=== PATIENT | female | born 1995 | race Caucasian/White ===

== ENCOUNTER 2018-08-25 16:59 | Emergency (ER) | payer BC ==
--- OUTSIDE RECORDS SUMMARY | 2018-08-25 17:08 | XMS REPORT | Continuity of Care Document ---
:1995 External Reference #:[id number] Author Name Khloe Barton Care Team Providers Name Role Phone Addi Sanford MD Primary Care Physician Unavailable Payers Type Date Identification Numbers Payment Provider Subscriber Policy Number: [id number] [employer] Gladys Deal PayID: [id number] [address] [address] [place] [address] Policy Number: [id number] Cont: [facility] Corin Blevins PayID: [id number] [place] [address] Advance Directives Description No Information Available Problems Date Description Provider Status Onset: 03/26/2012 Refractory epilepsy John Vicente M.D. 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 hours as needed for pain Tramadol HCL Active Tablets 50mg 20tabs 1 by M54.14 Addi 018 mouth [place], every 6 M.D. hours as needed pain Keppra Active Tablets 500mg 225tab 1 by Dayday Kirkland s mouth in Carolyn, in the MD morning 1 and a half in at night Ortho Active Tablets 0.18/0.215 28tabs 1 po qd John Tri-Cyclen 012 /0.25 mg-3 Clarisa Vicente Diazepam Active Tablets 2mg as needed Unknown 000 Celexa Active Tablets 20mg 1 by Unknown 000 mouth every day Celexa 0 Active Tablets 10mg 1 by Unknown 000 mouth every day Neurontin Active Capsules 300mg 1 tid Unknown 000 Phentermine Active Capsules 30mg 1 tab Unknown HCL 000 daily Fluoxetine HCL Active Capsules 10mg Juvenal, 000 MD Addi Hydrocodone/Ac Hx Tablets 5-325mg 50tabs 1-2 po John etaminophen 012 - qid prn Danielzijoe, M.DCristino [address] Hx Tablets DR 500mg 60tabs po bid 844.9 John 012 - with food Jules, M.DCristino 014 Albuterol HFA Hx 90mcg prn Unknown 000 - 018 Hydroxyzine Hx Tablets 50mg take 1 Unknown HCL 000 - tab every 6 hours 018 as needed Potassium Hx Tablets 99mg 1 by Unknown 000 - mouth twice 018 0 Hx Tablets 1 by Unknown 000 - mouth every day 017 Iron Hx Tablets 325(65Fe) 1 by Unknown 000 - mg mouth every day 018 Immunizations Description No Information Available Vital Signs Date Vital Result Comment 08/25/2018 3:06pm Height 63 inches 5'3" Weight 224.00 lb BP Systolic Sitting 180 mmHg BP Diastolic Sitting 100 mmHg Pain Level 10 BMI (Body Mass Index) 39.7 kg/m2 08/18/2018 8:59am Height 63 inches 5'3" Weight 224.00 lb BP Systolic Sitting 128 mmHg BP Diastolic Sitting 90 mmHg Pain Level 7 BMI (Body Mass Index) 39.7 kg/m2 07/29/2018 10:59am Height 63 inches 5'3" Weight 224.12 lb Heart Rate 82 /min BP Systolic Sitting 122 mmHg BP Diastolic Sitting 82 mmHg BMI (Body Mass Index) 39.7 kg/m2 04/28/2018 1:49pm Height 63 inches 5'3" Weight 228.00 lb Heart Rate 76 /min BP Systolic Sitting 110 mmHg BP Diastolic Sitting 72 mmHg BMI (Body Mass Index) 40.4 kg/m2 12/19/2016 1:44pm Height 63 inches 5'3" Weight 256.00 lb Heart Rate 80 /min BP Systolic Sitting 130 mmHg BP Diastolic Sitting 88 mmHg BMI (Body Mass Index) 45.3 kg/m2 12/21/2015 1:36pm Height 63 inches 5'3" Weight 290.00 lb Heart Rate 68 /min BP Systolic Sitting 118 mmHg BP Diastolic Sitting 80 mmHg Respiratory Rate 14 /min BMI (Body Mass Index) 51.4 kg/m2 09/15/2014 10:44am Height 63 inches 5'3" Weight 298.00 lb Heart Rate 80 /min BP Systolic Sitting 128 mmHg BP Diastolic Sitting 68 mmHg Respiratory Rate 16 /min BMI (Body Mass Index) 52.8 kg/m2 01/07/2014 11:08am Height 63 inches 5'3" Weight 280.00 lb Heart Rate 76 /min BP Systolic 108 mmHg BP Diastolic 76 mmHg Respiratory Rate 16 /min Body Temperature 98.2 F BMI (Body Mass Index) 49.6 kg/m2 Blood Pressure Percentile 43 % Height Percentile 31 % Weight Percentile >97th 03/26/2012 9:28am Height 62 inches 5'2" Weight 250.00 lb Heart Rate 88 /min BP Systolic 126 mmHg BP Diastolic 72 mmHg Respiratory Rate 20 /min Body Temperature 97.9 F BMI (Body Mass Index) 45.7 kg/m2 Blood Pressure Percentile 93 % Height Percentile 20 % Weight Percentile >97th Results Description No Information Available Procedures Date Code Description Status 12/13/2016 27107 EEG Recording Awake & Drowsy Completed Encounters Type Date Location Provider Dx Diagnosis Office Visit 07/29/2018 [facility] Dayday Loen, G40.309 Gen idiopathic 10:45a epilepsy, not intractable, w/o stat epi M54.14 Radiculopathy, thoracic region Office 04/28/2018 [facility] Dayday G40.309 Gen idiopathic Visit 2:00p Clinic MD Carolyn epilepsy, not intractable, w/o stat epi Office 12/19/2016 [facility] Dayday G40.309 Gen idiopathic Visit 1:45p Clinic MD Carolyn epilepsy, not intractable, w/o stat epi Z79.899 Other snf (current) drug therapy Office Visit 12/21/2015 [place] Dayday Leon, G40.309 Gen idiopathic 1:45p Neurologic epilepsy, not [facility] intractable, w/o stat epi Office Visit 09/15/2014 [place] Dayday Leon, 345.10 Epilepsy 11:00a Neurologic Convulsive W/O [facility] Intractable Office Visit 01/07/2014 Orthopedic Abelardo Mcconnell, 844.9 Sprains & Strains 10:45a [facility]isa K[facility] Leg Un[facility] AT [place] Office Visit 07/02/2012 Orthopedic John Vicente 844.9 Sprains & Strains 8:45a [facility]isa Knee & Leg Un[facility] AT [place] Office Visit 04/09/2012 Orthopedic John Vicente 844.9 Sprains & Strains 10:15a [facility] Clarisa Knee & Leg Unspec AT [place] Office Visit 03/26/2012 Orthopedic John Vicente 844.9 Sprains & Strains 9:00a [facility] Clarisa Knee & Leg Unspec AT [place] Plan of Treatment Future Appointment(s):01/27/2019 10:45 am - Daydya Leon MD at [facility] [place]/25/2018 - CLAIRE Guzman-CM51.34 Other intervertebral disc degeneration, thoracic regionFollow up:with PCP
[2018-08-25] MEDS ORDERED: Ketorolac INJ* 60 MG/2 ML VIAL IM ONE (17:18)
[2018-08-25] MEDS ORDERED: HYDROcodone/ACETAMIN 5-325 MG* 1 TAB PO ONE ×2 (18:20→20:22)
[2018-08-25 18:49] LABS: EGFR Non-African American 109.1 (>60)
[2018-08-25 18:51] LABS: ABS Basophils 0 10^3/ul (0-0.2); ABS Eosinophils 0.2 10^3/ul (0-0.6); ABS Lymphocytes 2.4 10^3/ul (1.0-4.8); ABS Monocytes 0.4 10^3/ul (0-0.8); ABS Nucleated RBC 0 10^3/ul; Eosinophil % 2.6 %; Hematocrit 34 % (35-47); Hemoglobin 10.8 g/dl (12.0-16.0); Lymphocyte % 40.8 %; Mean Corpuscular HGB Conc 32 g/dl (31-36); Mean Corpuscular Hemoglobin 23 pg (27-31); Mean Corpuscular Volume 73 fL (80-97); Mean Platelet Volume 7.1 fL (7.4-10.4); Nucleated Red Blood Cells % 0; Platelet Count 366 10^3/ul (150-450); Red Blood Count 4.65 10^6/ul (4.00-5.40); Red Cell Distribution Width 17 % (10.5-15)
[2018-08-25 19:31] LABS: Urine Appearance Cloudy; Urine Blood Negative (Negative); Urine Color Yellow; Urine Ketones Negative (Negative); Urine Protein Negative (Negative); Urine Red Blood Cell Absent (Absent); Urine Specific Gravity 1.014 (1.010-1.030); Urine Urobilinogen Positive (Negative); Urine White Blood Cell 2+(11-20/hpf) (Absent)
--- NOTE | 2018-08-25 20:17 | ED ---
Back Pain - HPI Summary HPI Summary: Patient complains of chronic back pain 6 months. Patient has been evaluated by neurosurgery with negative MRI of T-spine and L-spine June. Seen here for same 08/22. Seen by neurology today and told to come to the ED for continuing pain. Patient states pain occasionally involves bilateral ribs and shortness of breath. Patient currently taking OCPs. Patient denies fever, cough, sore throat, CP, SOB, N/V/V abdominal pain, change in urine, change in BM , change in ambulation. Pain worse after continued walking. Patient states she is being followed by acupuncture, chiropractic and physical therapy for same. States no treatment or medication has provided relief from pain. History of herniated disc. History of gastric bypass. Denies history of blood clots, history of cancer, , recent surgery or trauma. - History of Current Complaint Chief Complaint: EDBackInjuryPain Stated Complaint: BACK PAIN Time Seen by Provider: 08/25/18 17:10 Hx Obtained From: Patient Onset/Duration: Gradual Onset Onset/Duration: Started Weeks Ago Timing: Constant Severity Initially: Severe Severity Currently: Severe Pain Intensity: 8 Pain Scale Used: 0-10 Numeric Character: Sharp, Aching, Throbbing Aggravating Symptom(s): Movement, Walking Alleviating Symptom(s): Rest Associated Signs And Symptoms: Positive: Negative - Allergies/Home Medications Allergies/Adverse Reactions: Allergies Allergy/AdvReac Type Severity Reaction Status Date / Time No Known Allergies Allergy Verified 08/22/18 16:08 PMH/Surg Hx/FS Hx/Imm Hx Endocrine/Hematology History: Denies: Hx Diabetes Cardiovascular History: Denies: Hx Hypertension History: Denies: Hx Renal Disease - Surgical History Surgery Procedure, Year, and Place: Gastric Bypass. February 2018 Infectious Disease History: No Infectious Disease History: Denies: Traveled Outside the [place] in Last 30 Days - Family History Known Family History: Positive: Non-Contributory - Social History Alcohol Use: Occasionally Substance Use Type: Reports: None Smoking Status (MU): Current Every Day Smoker Review of Systems Constitutional: Negative Eyes: Negative ENT: Negative Cardiovascular: Negative Respiratory: Negative Gastrointestinal: Negative Genitourinary: Negative Musculoskeletal: Other Skin: Negative Neurological: Negative Psychological: Normal All Other Systems Reviewed And Are Negative: Yes Physical Exam - Summary Physical Exam Summary: No mass, erythema, ecchymosis, swelling, deformity, warmth noted to T-spine, L- spine. No tenderness to palpation of spine or paraspinal muscles or gluteus bilaterally. PMS intact distally in bilateral lower extremities. Abdominal exam unremarkable. Triage Information Reviewed: Yes Vital Signs On Initial Exam: Initial Vitals Temp Pulse Resp BP Pulse Ox 97 F 91 16 170/106 98 08/25/18 17:01 08/25/18 17:01 08/25/18 17:01 08/25/18 17:01 08/25/18 17:01 Vital Signs Reviewed: Yes Appearance: Positive: Well-Appearing Skin: Positive: Warm Head/Face: Positive: Normal Head/Face Inspection Eyes: Positive: Normal Neck: Positive: Supple Respiratory/Lung Sounds: Positive: Clear to Auscultation Cardiovascular: Positive: Normal Abdomen Description: Positive: Nontender Musculoskeletal: Positive: Normal Neurological: Positive: Normal Psychiatric: Positive: Normal AVPU Assessment: Alert - Ja Coma Scale Best Eye Response: 4 - Spontaneous Best Motor Response: 6 - Obeys Commands Best Verbal Response: 5 - Oriented Coma Scale Total: 15 Diagnostics - Vital Signs Vital Signs Temp Pulse Resp BP Pulse Ox 08/25/18 17:01 97 F 91 16 170/106 98 - Laboratory Lab Results: Lab Results 08/25/18 08/25/18 08/25/18 Range/Units 18:21 18:21 18:21 WBC 6.0 (3.5-10.8) 10^3/ul RBC 4.65 (4.00-5.40) 10^6/ul Hgb 10.8 L (12.0-16.0) g/dl Hct 34 L (35-47) % MCV 73 L (80-97) fL MCH 23 L (27-31) pg MCHC 32 (31-36) g/dl RDW 17 H (10.5-15) % Plt Count 366 (150-450) 10^3/ul MPV 7.1 L (7.4-10.4) fL Neut % (Auto) 49.2 % Lymph % (Auto) 40.8 % [place] % (Auto) 6.6 % Eos % (Auto) 2.6 % Baso % (Auto) 0.8 % Absolute Neuts (auto) 3.0 (1.5-7.7) 10^3/ul Absolute Lymphs (auto) 2.4 (1.0-4.8) 10^3/ul Absolute Monos (auto) 0.4 (0-0.8) 10^3/ul Absolute Eos (auto) 0.2 (0-0.6) 10^3/ul Absolute Basos (auto) 0 (0-0.2) 10^3/ul Absolute Nucleated RBC 0 10^3/ul Nucleated RBC % 0 D-Dimer, Quantitative < 200 (Less Than 230) ng/mL Sodium 139 (135-145) mmol/L Potassium 3.8 (3.5-5.0) mmol/L Chloride 105 (101-111) mmol/L Carbon Dioxide 28 (22-32) mmol/L Anion Gap 6 (2-11) mmol/L BUN 7 (6-24) mg/dL Creatinine 0.67 (0.51-0.95) mg/dL Est GFR ( Amer) 132.0 (>60) Est GFR (Non-Af Amer) 109.1 (>60) BUN/Creatinine Ratio 10.4 (8-20) Glucose 94 (70-100) mg/dL Calcium 8.8 (8.6-10.3) mg/dL Total Bilirubin 0.30 (0.2-1.0) mg/dL AST 9 L (13-39) U/L ALT 9 (7-52) U/L Alkaline Phosphatase 76 (34-104) U/L C-Reactive Protein 6.10 (<8.01) mg/L Total Protein 6.3 L (6.4-8.9) g/dL Albumin 3.6 (3.2-5.2) g/dL Globulin 2.7 (2-4) g/dL Albumin/Globulin Ratio 1.3 (1-3) Lipase 15 (11.0-82.0) U/L Urine Color Urine Appearance Urine pH (5-9) Ur Specific [place] (1.010-1.030) Urine Protein (Negative) Urine Ketones (Negative) Urine Blood (Negative) Urine Nitrate (Negative) Urine Bilirubin (Negative) Urine Urobilinogen (Negative) Ur Leukocyte Esterase (Negative) Urine WBC (Auto) (Absent) Urine RBC (Auto) (Absent) Ur Squamous Epith Cells (Absent) Urine Bacteria (Absent) Urine Sperm (Absent) Urine Glucose (Negative) 08/25/18 Range/Units 19:16 WBC (3.5-10.8) 10^3/ul RBC (4.00-5.40) 10^6/ul Hgb (12.0-16.0) g/dl Hct (35-47) % MCV (80-97) fL MCH (27-31) pg MCHC (31-36) g/dl RDW (10.5-15) % Plt Count (150-450) 10^3/ul MPV (7.4-10.4) fL Neut % (Auto) % Lymph % (Auto) % [place] % (Auto) % Eos % (Auto) % Baso % (Auto) % Absolute Neuts (auto) (1.5-7.7) 10^3/ul Absolute Lymphs (auto) (1.0-4.8) 10^3/ul Absolute Monos (auto) (0-0.8) 10^3/ul Absolute Eos (auto) (0-0.6) 10^3/ul Absolute Basos (auto) (0-0.2) 10^3/ul Absolute Nucleated RBC 10^3/ul Nucleated RBC % D-Dimer, Quantitative (Less Than 230) ng/mL Sodium (135-145) mmol/L Potassium (3.5-5.0) mmol/L Chloride (101-111) mmol/L Carbon Dioxide (22-32) mmol/L Anion Gap (2-11) mmol/L BUN (6-24) mg/dL Creatinine (0.51-0.95) mg/dL Est GFR ( Amer) (>60) Est GFR (Non-Af Amer) (>60) BUN/Creatinine Ratio (8-20) Glucose (70-100) mg/dL Calcium (8.6-10.3) mg/dL Total Bilirubin (0.2-1.0) mg/dL AST (13-39) U/L ALT (7-52) U/L Alkaline Phosphatase (34-104) U/L C-Reactive Protein (<8.01) mg/L Total Protein (6.4-8.9) g/dL Albumin (3.2-5.2) g/dL Globulin (2-4) g/dL Albumin/Globulin Ratio (1-3) Lipase (11.0-82.0) U/L Urine Color Yellow Urine Appearance Cloudy Urine pH 7.0 (5-9) Ur Specific [place] 1.014 (1.010-1.030) Urine Protein Negative (Negative) Urine Ketones Negative (Negative) Urine Blood Negative (Negative) Urine Nitrate Negative (Negative) Urine Bilirubin Negative (Negative) Urine Urobilinogen Positive A (Negative) Ur Leukocyte Esterase 1+ A (Negative) Urine WBC (Auto) 2+(11-20/hpf) A (Absent) Urine RBC (Auto) Absent (Absent) Ur Squamous Epith Cells Present A (Absent) Urine Bacteria Absent (Absent) Urine Sperm Present A (Absent) Urine Glucose Negative (Negative) Result Diagrams: 08/25/18 18:21 08/25/18 18:21 Lab Statement: Any lab studies that have been ordered have been reviewed, and results considered in the medical decision making process. - CT abdomen pelvis CT Interpretation Completed By: ED Physician - Negative Back Pain Course/Dx - Course Course Of Treatment: Patient complains of chronic back pain 6 months. Patient has been evaluated by neurosurgery with negative MRI of T-spine and L-spine June. Seen here for same 08/22. Seen by neurology today and told to come to the ED for continuing pain. Patient states pain occasionally involves bilateral ribs and shortness of breath. Patient currently taking OCPs. Patient denies fever, cough, sore throat, CP, SOB, N/V/V abdominal pain, change in urine, change in BM, change in ambulation. Pain worse after continued walking. Patient states she is being followed by acupuncture, chiropractic and physical therapy for same. States no treatment or medication has provided relief from pain. History of herniated disc. History of gastric bypass. Denies history of blood clots, history of cancer, , recent surgery or trauma. Physical exam:No mass, erythema, ecchymosis, swelling, deformity, warmth noted to T-spine, L-spine. No tenderness to palpation of spine or paraspinal muscles or gluteus bilaterally. PMS intact distally in bilateral lower extremities. Abdominal exam unremarkable. Vital signs within normal limits. Labs unremarkable. CT abdomen and pelvis negative. [facility] reference # [id number]. Patient has recieved multiple Rx for opiates. Asked repeatedly for pain medication while here. States she is working with physical therapy, acupuncture and chiropractic. She has appointment with pain medication on the Aug. Negative recent MRI T-spine and L-spine by neurology Dr Jones. Patient states no neurosurgeons advised to come to ED for continuing pain. CT abdomen negative today, labs unremarkable. Possible drug-seeking. - Diagnoses Provider Diagnoses: Chronic back pain Discharge - Sign-Out/Discharge Documenting (check all that apply): Patient Departure - Discharge Plan Condition: Stable Disposition: HOME Patient Education Materials: Chronic Back Pain (DC) Referrals: Naveen Timmons MD [Primary Care Provider] - Additional Instructions: Follow-up with primary care. Return to the ED for any new or worsening symptoms. - Billing Disposition and Condition Condition: STABLE Disposition: Home
[2018-08-25 20:41] VITALS: BP 155/89
--- NOTE | 2018-08-28 07:03 | ED ---
Progress - Progress Note Progress Note: Urine culture reveals no growth clinical significance. No antibiotics initiated. No further action at this time. Course/Dx - Course Course Of Treatment: Patient complains of chronic back pain 6 months. Patient has been evaluated by neurosurgery with negative MRI of T-spine and L-spine June. Seen here for same 08/22. Seen by neurology today and told to come to the ED for continuing pain. Patient states pain occasionally involves bilateral ribs and shortness of breath. Patient currently taking OCPs. Patient denies fever, cough, sore throat, CP, SOB, N/V/V abdominal pain, change in urine, change in BM, change in ambulation. Pain worse after continued walking. Patient states she is being followed by acupuncture, chiropractic and physical therapy for same. States no treatment or medication has provided relief from pain. History of herniated disc. History of gastric bypass. Denies history of blood clots, history of cancer, , recent surgery or trauma. Physical exam:No mass, erythema, ecchymosis, swelling, deformity, warmth noted to T-spine, L-spine. No tenderness to palpation of spine or paraspinal muscles or gluteus bilaterally. PMS intact distally in bilateral lower extremities. Abdominal exam unremarkable. Vital signs within normal limits. Labs unremarkable. CT abdomen and pelvis negative. [facility] reference # [id number]. Patient has recieved multiple Rx for opiates. Asked repeatedly for pain medication while here. States she is working with physical therapy, acupuncture and chiropractic. She has appointment with pain medication on the Aug. Negative recent MRI T-spine and L-spine by neurology Dr Jones. Patient states no neurosurgeons advised to come to ED for continuing pain. CT abdomen negative today, labs unremarkable. Possible drug-seeking. - Diagnoses Provider Diagnoses: Chronic back pain Discharge - Sign-Out/Discharge Documenting (check all that apply): Post-Discharge Follow Up - Discharge Plan Condition: Stable Disposition: HOME Patient Education Materials: Chronic Back Pain (DC) Referrals: Naveen Timmons MD [Primary Care Provider] - Additional Instructions: Follow-up with primary care. Return to the ED for any new or worsening symptoms. - Billing Disposition and Condition Condition: STABLE Disposition: Home
== END 2018-08-25 20:39 | disposition home or self-care (01) ==
LOC: ED 16:59
DX: G89.29 Other chronic pain (principal); M54.9 Dorsalgia, unspecified; R10.13 Epigastric pain; Z98.84 Bariatric surgery status; Z72.0 Tobacco use
CPT/HCPCS: 36415; 74177; 80053; 81003; 81015; 83690; 85025; 85379; 86140; 87077; 87086; 96372; 99282; J1885